=== PATIENT | male | born 1970 ===

== ENCOUNTER 2021-11-11 14:31 | Inpatient (IN) | payer BC ==
[2021-11-11] MEDS ORDERED: Metoprolol Tartrate 5 MG/5 ML VIAL ONE (14:49)
[2021-11-11 15:05] LABS: #Basophils 0.1 thou/uL (0.0-0.2); #Eosinphils 0.1 thou/uL (0.0-0.7); #Lymphocytes 2.5 thou/uL (1.20-3.40); #Monocytes 0.5 thou/uL (0.11-0.59); #Neutrophils 5.6 thou/uL (1.40-6.50); %Basophils 0.6 % (0.0-1.0); %Eosinophils 0.6 % (0.0-10.0); %Lymphocytes 28.7 % (21.0-51.0); %Monocytes 5.5 % (0.0-10.0); %Neutrophils 64.6 % (42.0-75.0); Hemoglobin 17.7 g/dL (14.0-18.0); Mean Corpuscular HGB CONC 32.8 g/dL (32.0-36.0); Mean Corpuscular Hemoglobin 32.3 pg (27.0-31.0); Mean Corpuscular Volume 98.6 fL (78.0-98.0); Mean Platelet Volume 10.5 fL (7.4-10.4); Platelet Count 215 thou/uL (130-400); RBC Distribution Width 13.3 % (11.5-14.5); Red Blood Cell (RBC) Count 5.49 mill/uL (4.70-6.10); White Blood Cell (WBC) Count 8.6 thou/uL (4.8-10.8)
[2021-11-11 15:26] LABS: ALT (SGPT) 116 U/L (8-55); AST (SGOT) 49 U/L (5-34); Albumin 4.4 g/dL (3.5-5.0); Alkaline Phosphatase 72 U/L (40-110); Anion Gap 15 mmol/L (10-20); BUN (Urea Nitrogen) 13 mg/dL (8.4-25.7); Bilirubin, Total 1.6 mg/dL (0.2-1.2); Calc. Creatinine Clearance 0 mL/min (70-130); Calcium 10.2 mg/dL (7.8-10.44); Carbon Dioxide 24 mmol/L (22-29); Chloride 106 mmol/L (98-107); Estimated GFR 52; Globulin 3.2 g/dL (2.4-3.5); Glucose 140 mg/dL (70-105); Potassium 4.4 mmol/L (3.5-5.1); Protein, Total 7.6 g/dL (6.0-8.3); Sodium 141 mmol/L (136-145)
[2021-11-11 15:48] LABS: CKMB 1.5 ng/mL (0-6.6)
[2021-11-11] MEDS ORDERED: Furosemide 40 MG/4 ML VIAL ONE (16:12)
[2021-11-11 16:31] LABS: SARS-CoV-2 NAA Rapid Test Not Detected (NotDetected)
[2021-11-11 17:31] LABS: Troponin I 0.047 ng/mL (< 0.028)
[2021-11-11] MEDS ORDERED: Ondansetron ODT 4 MG TAB PO PRN (18:00)
[2021-11-11] MEDS ORDERED: Metoprolol Tartrate 5 MG/5 ML VIAL IVP PRN (18:06)
[2021-11-11 19:39] VITALS: BMI 31.9
[2021-11-11] MEDS: Simvastatin 10 MG TAB PO SCH (20:20)
[2021-11-11 21:07] LABS: Troponin I 0.038 ng/mL (< 0.028)
[2021-11-12 04:52] LABS: #Basophils 0.1 thou/uL (0.0-0.2); #Eosinphils 0.1 thou/uL (0.0-0.7); #Lymphocytes 2.3 thou/uL (1.20-3.40); #Monocytes 0.6 thou/uL (0.11-0.59); #Neutrophils 5.6 thou/uL (1.40-6.50); %Basophils 0.9 % (0.0-1.0); %Eosinophils 1.3 % (0.0-10.0); %Monocytes 7.4 % (0.0-10.0); %Neutrophils 64.4 % (42.0-75.0); Hemoglobin 16.8 g/dL (14.0-18.0); Hemoglobin A1c 5.1 % (4.0-6.0); Mean Corpuscular HGB CONC 33.2 g/dL (32.0-36.0); Mean Corpuscular Hemoglobin 32.8 pg (27.0-31.0); Mean Corpuscular Volume 98.6 fL (78.0-98.0); Mean Platelet Volume 10.3 fL (7.4-10.4); Platelet Count 178 thou/uL (130-400); RBC Distribution Width 13.3 % (11.5-14.5); Red Blood Cell (RBC) Count 5.13 mill/uL (4.70-6.10); White Blood Cell (WBC) Count 8.7 thou/uL (4.8-10.8)
[2021-11-12 05:09] LABS: Anion Gap 15 mmol/L (10-20); BUN (Urea Nitrogen) 15 mg/dL (8.4-25.7); Calc. Creatinine Clearance 85 mL/min (70-130); Calcium 9.8 mg/dL (7.8-10.44); Carbon Dioxide 23 mmol/L (22-29); Chloride 104 mmol/L (98-107); Estimated GFR 56; Glucose 109 mg/dL (70-105); Potassium 4.3 mmol/L (3.5-5.1); Sodium 138 mmol/L (136-145)
[2021-11-12] MEDS: Acetaminophen 325 MG TAB PO PRN (08:14)
[2021-11-12] MEDS: Furosemide 40 MG TAB PO SCH (08:14)
[2021-11-12] MEDS: Digoxin 0.125 MG TAB PO SCH (08:14)
[2021-11-12] MEDS ORDERED: Rivaroxaban 10 MG TAB PO SCH (09:00)
[2021-11-12] MEDS ORDERED: Furosemide 40 MG/4 ML VIAL SLOW IVP SCH (09:00)
[2021-11-12] MEDS ORDERED: Lisinopril 5 MG TAB PO SCH (09:00)
[2021-11-12] MEDS ORDERED: Metoprolol Tartrate 50 MG TAB PO SCH (09:00)
[2021-11-12] MEDS ORDERED: Metoprolol Tartrate 25 MG TAB PO SCH (09:00)
[2021-11-12] MEDS ORDERED: Spironolactone 25 MG TAB PO SCH (10:45)
[2021-11-12] MEDS: Carvedilol 6.25 MG TAB PO SCH (17:48)
[2021-11-12] MEDS ORDERED: Enoxaparin Sodium 80 MG/0.8 ML SYRINGE SC SCH (21:00)
[2021-11-12] MEDS: Simvastatin 10 MG TAB PO SCH (21:11)
[2021-11-13 05:01] LABS: #Basophils 0.1 thou/uL (0.0-0.2); #Eosinphils 0.1 thou/uL (0.0-0.7); #Lymphocytes 2.5 thou/uL (1.20-3.40); #Monocytes 0.6 thou/uL (0.11-0.59); #Neutrophils 5.1 thou/uL (1.40-6.50); %Basophils 0.9 % (0.0-1.0); %Eosinophils 1.4 % (0.0-10.0); %Lymphocytes 29.7 % (21.0-51.0); %Monocytes 6.8 % (0.0-10.0); %Neutrophils 61.2 % (42.0-75.0); Mean Corpuscular HGB CONC 33.7 g/dL (32.0-36.0); Mean Corpuscular Volume 97.8 fL (78.0-98.0); Mean Platelet Volume 10.5 fL (7.4-10.4); Platelet Count 186 thou/uL (130-400); RBC Distribution Width 13.1 % (11.5-14.5); Red Blood Cell (RBC) Count 5.17 mill/uL (4.70-6.10); White Blood Cell (WBC) Count 8.3 thou/uL (4.8-10.8)
[2021-11-13 05:36] LABS: Digoxin Less than 0.15 ng/mL (0.8-2.0)
[2021-11-13 05:40] LABS: Anion Gap 18 mmol/L (10-20); BUN (Urea Nitrogen) 17 mg/dL (8.4-25.7); Calc. Creatinine Clearance 88 mL/min (70-130); Calcium 9.7 mg/dL (7.8-10.44); Carbon Dioxide 17 mmol/L (22-29); Chloride 108 mmol/L (98-107); Estimated GFR 58; Glucose 112 mg/dL (70-105); Potassium 4.1 mmol/L (3.5-5.1); Sodium 139 mmol/L (136-145)
[2021-11-13] MEDS: Carvedilol 6.25 MG TAB PO SCH ×2 (08:11→18:28)
[2021-11-13] MEDS: Spironolactone 25 MG TAB PO SCH (08:12)
[2021-11-13] MEDS: Sodium Bicarbonate Tab 325 MG TAB PO SCH ×2 (08:12→20:08)
[2021-11-13] MEDS: Furosemide 40 MG TAB PO SCH (08:12)
[2021-11-13] MEDS: Digoxin 0.125 MG TAB PO SCH (08:12)
[2021-11-13] MEDS: Enoxaparin Sodium 100 MG/ML SYRINGE SC SCH ×2 (08:48→20:08)
[2021-11-13] MEDS ORDERED: Enoxaparin Sodium 80 MG/0.8 ML SYRINGE SC SCH (09:00)
[2021-11-13] MEDS ORDERED: Carvedilol 25 MG TAB PO SCH ×2 (09:01→09:15)
[2021-11-13] MEDS: Carvedilol 25 MG TAB PO SCH (17:01)
[2021-11-13] MEDS: Simvastatin 10 MG TAB PO SCH (20:08)
[2021-11-14 07:05] LABS: #Basophils 0.1 thou/uL (0.0-0.2); #Eosinphils 0.1 thou/uL (0.0-0.7); #Lymphocytes 2.1 thou/uL (1.20-3.40); #Monocytes 0.7 thou/uL (0.11-0.59); #Neutrophils 9.3 thou/uL (1.40-6.50); %Basophils 0.5 % (0.0-1.0); %Eosinophils 0.4 % (0.0-10.0); %Lymphocytes 16.8 % (21.0-51.0); %Neutrophils 76.2 % (42.0-75.0); Hemoglobin 17.3 g/dL (14.0-18.0); Mean Corpuscular HGB CONC 34.2 g/dL (32.0-36.0); Mean Corpuscular Hemoglobin 33.3 pg (27.0-31.0); Mean Corpuscular Volume 97.4 fL (78.0-98.0); Mean Platelet Volume 10.2 fL (7.4-10.4); Platelet Count 180 thou/uL (130-400); RBC Distribution Width 12.8 % (11.5-14.5); Red Blood Cell (RBC) Count 5.19 mill/uL (4.70-6.10); White Blood Cell (WBC) Count 12.2 thou/uL (4.8-10.8)
[2021-11-14 07:24] LABS: Anion Gap 17 mmol/L (10-20); BUN (Urea Nitrogen) 17 mg/dL (8.4-25.7); Calc. Creatinine Clearance 91 mL/min (70-130); Calcium 9.8 mg/dL (7.8-10.44); Carbon Dioxide 20 mmol/L (22-29); Chloride 104 mmol/L (98-107); Estimated GFR 59; Glucose 113 mg/dL (70-105); Potassium 4.2 mmol/L (3.5-5.1); Sodium 137 mmol/L (136-145)
[2021-11-14] MEDS: Sodium Bicarbonate Tab 325 MG TAB PO SCH ×2 (08:00→20:22)
[2021-11-14] MEDS: Carvedilol 25 MG TAB PO SCH (08:00)
[2021-11-14] MEDS: Spironolactone 25 MG TAB PO SCH (08:00)
[2021-11-14] MEDS: Furosemide 40 MG TAB PO SCH (08:00)
[2021-11-14] MEDS ORDERED: Ondansetron PF 4 MG/2 ML Vial IVP PRN (08:19)
[2021-11-14] MEDS ORDERED: Ketorolac Tromethamine 30 MG/ML VIAL IVP SCH (08:30)
[2021-11-14] MEDS ORDERED: PROPOFOL 40 ML ONE (08:54)
[2021-11-14] MEDS ORDERED: Amiodarone 200 MG TAB PO SCH (09:00)
[2021-11-14] MEDS ORDERED: Ketamine 50 MG/ML (10ML VIAL) ONE (09:06)
[2021-11-14] MEDS ORDERED: Phenylephrine 10 MG/ML VIAL ONE (09:16)
[2021-11-14] MEDS ORDERED: PROPOFOL 200 MG/20 ML VIAL ONE (09:16)
[2021-11-14] MEDS ORDERED: Ondansetron PF 4 MG/2 ML Vial ONE (10:20)
[2021-11-14] MEDS: Amiodarone 450 MG in Dextrose 5% in Water 250 ML IVPB SCH ×2 (11:21→20:23)
[2021-11-14] MEDS: Enoxaparin Sodium 100 MG/ML SYRINGE SC SCH ×2 (12:54→20:23)
[2021-11-14] MEDS ORDERED: Sodium Chloride 0.9% 500 ML IV SCH (13:15)
[2021-11-14] MEDS: Carvedilol 6.25 MG TAB PO SCH (14:17)
[2021-11-14] MEDS: Digoxin 0.125 MG TAB PO SCH (14:17)
[2021-11-14 19:28] LABS: Troponin I 0.033 ng/mL (< 0.028)
[2021-11-14] MEDS: Simvastatin 10 MG TAB PO SCH (20:22)
[2021-11-15 04:55] LABS: #Basophils 0.1 thou/uL (0.0-0.2); #Eosinphils 0.1 thou/uL (0.0-0.7); #Lymphocytes 3.1 thou/uL (1.20-3.40); #Monocytes 0.9 thou/uL (0.11-0.59); #Neutrophils 8.4 thou/uL (1.40-6.50); %Basophils 0.7 % (0.0-1.0); %Eosinophils 0.6 % (0.0-10.0); %Lymphocytes 24.6 % (21.0-51.0); %Monocytes 6.8 % (0.0-10.0); %Neutrophils 67.4 % (42.0-75.0); Hemoglobin 16.8 g/dL (14.0-18.0); Mean Corpuscular HGB CONC 32.9 g/dL (32.0-36.0); Mean Corpuscular Hemoglobin 32.8 pg (27.0-31.0); Mean Corpuscular Volume 99.8 fL (78.0-98.0); Mean Platelet Volume 10.7 fL (7.4-10.4); Platelet Count 204 thou/uL (130-400); Red Blood Cell (RBC) Count 5.13 mill/uL (4.70-6.10); White Blood Cell (WBC) Count 12.5 thou/uL (4.8-10.8)
[2021-11-15 05:09] LABS: ALT (SGPT) 69 U/L (8-55); AST (SGOT) 43 U/L (5-34); Alkaline Phosphatase 70 U/L (40-110); Anion Gap 19 mmol/L (10-20); BUN (Urea Nitrogen) 17 mg/dL (8.4-25.7); Calc. Creatinine Clearance 89 mL/min (70-130); Calcium 9.7 mg/dL (7.8-10.44); Carbon Dioxide 21 mmol/L (22-29); Chloride 102 mmol/L (98-107); Estimated GFR 58; Glucose 107 mg/dL (70-105); Potassium 4.6 mmol/L (3.5-5.1); Sodium 137 mmol/L (136-145)
[2021-11-15] MEDS ORDERED: Amiodarone 200 MG TAB PO SCH ×2 (08:00→09:00)
[2021-11-15] MEDS ORDERED: Furosemide 40 MG/4 ML VIAL SLOW IVP SCH (09:00)
[2021-11-15] MEDS: Enoxaparin Sodium 100 MG/ML SYRINGE SC SCH ×2 (10:24→20:22)
[2021-11-15] MEDS: Spironolactone 25 MG TAB PO SCH (10:24)
[2021-11-15] MEDS: Sodium Bicarbonate Tab 325 MG TAB PO SCH ×2 (10:27→20:23)
[2021-11-15] MEDS: Acetaminophen 325 MG TAB PO PRN (13:37)
[2021-11-15] MEDS: Amiodarone 200 MG TAB PO SCH ×2 (15:10→20:23)
[2021-11-15] MEDS: Simvastatin 10 MG TAB PO SCH (20:23)
[2021-11-16] MEDS: Acetaminophen 325 MG TAB PO PRN (03:43)
[2021-11-16 05:43] LABS: #Basophils 0.1 thou/uL (0.0-0.2); #Eosinphils 0.1 thou/uL (0.0-0.7); #Lymphocytes 2.1 thou/uL (1.20-3.40); #Monocytes 0.8 thou/uL (0.11-0.59); %Basophils 0.7 % (0.0-1.0); %Eosinophils 0.6 % (0.0-10.0); %Lymphocytes 23.5 % (21.0-51.0); %Monocytes 8.7 % (0.0-10.0); %Neutrophils 66.6 % (42.0-75.0); Hemoglobin 15.5 g/dL (14.0-18.0); Mean Corpuscular HGB CONC 33.5 g/dL (32.0-36.0); Mean Corpuscular Hemoglobin 33.5 pg (27.0-31.0); Platelet Count 169 thou/uL (130-400); RBC Distribution Width 12.8 % (11.5-14.5); Red Blood Cell (RBC) Count 4.62 mill/uL (4.70-6.10)
[2021-11-16 06:04] LABS: Anion Gap 17 mmol/L (10-20); BUN (Urea Nitrogen) 18 mg/dL (8.4-25.7); Calc. Creatinine Clearance 92 mL/min (70-130); Carbon Dioxide 21 mmol/L (22-29); Chloride 103 mmol/L (98-107); Estimated GFR 60; Glucose 107 mg/dL (70-105); Potassium 3.7 mmol/L (3.5-5.1); Sodium 137 mmol/L (136-145)
[2021-11-16] MEDS ORDERED: Magnesium 2 GM/50 ML(in water) 2 GM in Premix Bag 1 BAG IVPB SCH (08:15)
[2021-11-16] MEDS ORDERED: Potassium Chloride 20 MEQ TAB PO SCH (08:15)
[2021-11-16] MEDS ORDERED: Amiodarone 150 MG, Admixture Fee 1 EACH in Dextrose 5% in Water 100 ML IVPB SCH (08:45)
[2021-11-16] MEDS: Enoxaparin Sodium 100 MG/ML SYRINGE SC SCH ×2 (08:53→20:18)
[2021-11-16] MEDS: Sodium Bicarbonate Tab 325 MG TAB PO SCH ×2 (08:53→20:18)
[2021-11-16] MEDS: Spironolactone 25 MG TAB PO SCH (08:54)
[2021-11-16] MEDS ORDERED: Furosemide 40 MG/4 ML VIAL SLOW IVP SCH (09:00)
[2021-11-16] MEDS ORDERED: Amiodarone 200 MG TAB PO SCH (09:00)
[2021-11-16] MEDS: Amiodarone 450 MG, Admixture Fee 1 EACH in Dextrose 5% in Water 250 ML IVPB SCH ×2 (11:31→20:18)
[2021-11-16] MEDS ORDERED: HYDROcodone/Acetaminophen 5/325 mg Tablet PO SCH (12:15)
[2021-11-16] MEDS: Simvastatin 10 MG TAB PO SCH (20:18)
[2021-11-17 05:33] LABS: #Eosinphils 0.1 thou/uL (0.0-0.7); #Monocytes 0.8 thou/uL (0.11-0.59); #Neutrophils 4.6 thou/uL (1.40-6.50); %Basophils 0.7 % (0.0-1.0); %Eosinophils 1.2 % (0.0-10.0); %Lymphocytes 26.4 % (21.0-51.0); %Monocytes 10.2 % (0.0-10.0); %Neutrophils 61.5 % (42.0-75.0); Hemoglobin 16.4 g/dL (14.0-18.0); Mean Corpuscular HGB CONC 32.1 g/dL (32.0-36.0); Mean Corpuscular Hemoglobin 32.4 pg (27.0-31.0); Mean Platelet Volume 10.4 fL (7.4-10.4); Platelet Count 174 thou/uL (130-400); RBC Distribution Width 12.9 % (11.5-14.5); Red Blood Cell (RBC) Count 5.08 mill/uL (4.70-6.10); White Blood Cell (WBC) Count 7.4 thou/uL (4.8-10.8)
[2021-11-17 05:37] LABS: Anion Gap 13 mmol/L (10-20); BUN (Urea Nitrogen) 10 mg/dL (8.4-25.7); Calc. Creatinine Clearance 94 mL/min (70-130); Calcium 9.3 mg/dL (7.8-10.44); Carbon Dioxide 24 mmol/L (22-29); Chloride 109 mmol/L (98-107); Estimated GFR 62; Glucose 105 mg/dL (70-105); Magnesium 2.1 mg/dL (1.6-2.6); Sodium 141 mmol/L (136-145)
[2021-11-17] MEDS: Amiodarone 200 MG TAB PO SCH ×2 (08:50→14:47)
[2021-11-17] MEDS: Spironolactone 25 MG TAB PO SCH (08:50)
[2021-11-17] MEDS: Enoxaparin Sodium 100 MG/ML SYRINGE SC SCH (08:50)
[2021-11-17 12:20] VITALS: BP 116/70; TEMP 97.6
[2021-11-17 14:22] LABS: HIV (1/2) Antibody/Antigen Non-Reactive (NonReactive); HIV 1/2 INDEX 0.12 S/CO (<1.00)
== END 2021-11-17 15:48 | disposition home or self-care (01) | DRG 291 ==
LOC: ERS 14:31 → 2SW 16:21
PROVIDERS: ADMIT Hospitalist; ATTEND Hospitalist
PROC: 5A2204Z Restoration of Cardiac Rhythm, Single (ICD-10-PCS; principal; 2021-11-14)
PROC: B24BZZ4 Ultrasonography of Heart with Aorta, Transesophageal (ICD-10-PCS; 2021-11-14)
DX: I11.0 Hypertensive heart disease with heart failure (principal); I50.43 Acute on chronic combined systolic (congestive) and diastolic (congestive) heart failure; N17.9 Acute kidney failure, unspecified; I48.11 Longstanding persistent atrial fibrillation; Z20.822 Contact with and (suspected) exposure to COVID-19; I42.8 Other cardiomyopathies; E78.5 Hyperlipidemia, unspecified; I08.1 Rheumatic disorders of both mitral and tricuspid valves; I25.10 Atherosclerotic heart disease of native coronary artery without angina pectoris; Z79.01 Long term (current) use of anticoagulants; Z79.899 Other long term (current) drug therapy; Z79.02 Long term (current) use of antithrombotics/antiplatelets; Z82.49 Family history of ischemic heart disease and other diseases of the circulatory system; I95.9 Hypotension, unspecified
CPT/HCPCS: 36415; 71045; 80048; 80053; 80076; 80162; 82553; 83036; 83735; 83880; 84443; 84484; 85025; 87389; 92960; 93005; 93010; 93306; 93312; 96374; 96375; J0282; J1650; J1940; J2370; J2405; J2704; J3475; J7030; J7070; Q0162; U0002

== ENCOUNTER 2021-11-20 09:43 | Outpatient (CLI) | payer BC | END 2021-11-20 09:44 | disposition home or self-care (01) | LOC: BICRAD 09:43 | PROVIDERS: ATTEND Nurse Practitioner Family | DX: M79.672 Pain in left foot (principal); M21.962 Unspecified acquired deformity of left lower leg ==

== ENCOUNTER 2022-01-19 19:00 | Outpatient (CLI) | payer BC | END 2022-01-19 19:01 | disposition home or self-care (01) | LOC: SLEEPLAB 19:00 | PROVIDERS: ATTEND Preventive Medicine Preventive Medicine/Occupational Environmental Medicine | DX: G47.33 Obstructive sleep apnea (adult) (pediatric) (principal); R06.83 Snoring; R53.83 Other fatigue; I11.0 Hypertensive heart disease with heart failure; I50.9 Heart failure, unspecified; G47.10 Hypersomnia, unspecified; G47.00 Insomnia, unspecified; G47.31 Primary central sleep apnea; I48.91 Unspecified atrial fibrillation; E66.9 Obesity, unspecified; Z68.31 Body mass index [BMI] 31.0-31.9, adult | CPT/HCPCS: 95811 ==

== ENCOUNTER → 2022-05-12 | Day surgery (SDC) | payer BC ==
[2022-05-11 11:23] VITALS: BMI 29.9
[~2022-05-12] MED LIST: Esmolol 100 MG/10 ML VIAL ONE; FENTANYL 50 MCG/ML 1 ML VIAL ONE; Heparin 10,000 UNITS/ 10 ML VIAL ONE; Ketamine 50 MG/ML (10ML VIAL) ONE; Lidocaine 1% (PF) 30 ML VIAL ONE; Midazolam HCl 2 mg/2 ml Vial ONE; Norepinephrine 4 MG/4 ML VIAL ONE; Ondansetron HCl/PF 4 MG/2 ML Vial IVP PRN; Ondansetron PF 4 MG/2 ML Vial ONE; PROPOFOL 200 MG/20 ML VIAL ONE; Promethazine HCl 25 MG/ML VIAL IM PRN; Rocuronium Bromide 10 MG/ML (10ML VIAL) ONE; SUGAMMADEX SODIUM 200 MG/2 ML VIAL ONE
== END | disposition home or self-care (01) ==
LOC: SDC 11:35
PROVIDERS: ATTEND Internal Medicine Cardiovascular Disease
PROC: B244ZZ3 Ultrasonography of Right Heart, Intravascular (ICD-10-PCS; principal; 2022-05-12)
PROC: 02583ZZ Destruction of Conduction Mechanism, Percutaneous Approach (ICD-10-PCS; principal; 2022-05-12)
PROC: 4A023FZ Measurement of Cardiac Rhythm, Percutaneous Approach (ICD-10-PCS; principal; 2022-05-12)
PROC: 4A0234Z Measurement of Cardiac Electrical Activity, Percutaneous Approach (ICD-10-PCS; principal; 2022-05-12)
PROC: B246ZZ4 Ultrasonography of Right and Left Heart, Transesophageal (ICD-10-PCS; principal; 2022-05-12)
PROC: 02K83ZZ Map Conduction Mechanism, Percutaneous Approach (ICD-10-PCS; principal; 2022-05-12)
DX: I48.3 Typical atrial flutter (principal); I34.0 Nonrheumatic mitral (valve) insufficiency; I48.0 Paroxysmal atrial fibrillation; I11.0 Hypertensive heart disease with heart failure; I50.42 Chronic combined systolic (congestive) and diastolic (congestive) heart failure; I42.8 Other cardiomyopathies; Z79.01 Long term (current) use of anticoagulants; Z79.899 Other long term (current) drug therapy
CPT/HCPCS: 93005; 93312; 93653; 93662; C1731; C1759; C1760; C1769; C1894; C2630; J1644; J2001; J2250; J2405; J2704; J3010